=== PATIENT | male | born 1980 | race African-American/Black ===

== ENCOUNTER 2022-10-05 22:06 | Inpatient (IN) ==
[2022-10-05] MEDS ORDERED: NITROGLYCERIN 2% OINT 1 INCH/GM PACK TOP STA (22:45)
[2022-10-05] MEDS ORDERED: ASPIRIN 325 MG TABLET PO STA (22:45)
[2022-10-05] MEDS ORDERED: ONDANSETRON 4 MG/2 ML VIAL IV STA (22:45)
[2022-10-05] MEDS ORDERED: MORPHINE 2 MG/1 ML SYRINGE IV STA (22:45)
[2022-10-05] MEDS ORDERED: FUROSEMIDE 100 MG/10 ML VIAL IV STA (22:45)
[2022-10-05 22:51] LABS: Basophils % 0.3 % (0.0-0.8); Eosinophils # 0.1 10*3/uL (0.0-0.87); Eosinophils % 0.4 % (0.00-10.9); Hematocrit 43.7 VOL% (42.0-52.0); Hemoglobin 13.1 GM/DL (14.0-18.0); Immature Granulocytes % 0.3 %; Immature Granulocytes Absolute 0.04 #; Lymphocytes # 2.4 10*3/uL (1.4-4.0); Mean Platelet Volume 11.7 FL (9.6-12.0); Monocytes # 0.9 10*3/uL (0.11-0.8); Monocytes % 7.4 % (1.7-12.7); Neutrophils % 72.6 % (38.7-73.9); Platelet Count 230 T/CUMM (130-400); Red Blood Count 5.33 MC/CUMM (3.8-5.5); Red Cell Distribution Width 15.9 % (9.3-17.3); White Blood Count 12.6 T/CUMM (4-12)
[2022-10-05] MEDS ORDERED: hydrALAZINE 20 MG/1 ML VIAL ONE (22:52)
[2022-10-05 22:54] LABS: Bilirubin,Urine Negative (Negative); Blood, Urine Negative (Negative); Glucose,Urine (UA) Negative (Negative); Ketones,Urine Negative (Negative); Nitrite,Urine Negative (Negative); Protein,Urine 100 mg/dL (Negative); Urine Appearance Clear (Clear); Urine Color Yellow (Yellow); Urine Specific Gravity 1.025 (1.001-1.035); Urine Urobilinogen 0.2 eU/dL (<2.0)
[2022-10-05 22:56] LABS: Amorphous Crystals,Urine Occasional /HPF (Few); Hyaline Casts,Urine 9 /LPF (0-3); Mucus,Urine Occasional /LPF (Occasional); RBC,Urine 13 /HPF (0-4); Squamous Epithelial Cell,Urine Occasional /HPF (0-10)
[2022-10-05] MEDS ORDERED: hydrALAZINE 20 MG/1 ML VIAL IV STA (23:01)
[2022-10-05 23:04] LABS: Arterial Base Excess iSTAT 4 MMOL/L (-2.5-2.5); Arterial Bicarbonate iSTAT 29.7 MMOL/L (20-26); Arterial O2 Saturation iSTAT 96 % (95-100); Arterial PCO2 iSTAT 48 MM HG (35-48); Arterial PO2 iSTAT 82 MM HG (80-95); Arterial Total CO2 iSTAT 31 MMO/L (23-27); Arterial pH iSTAT 7.397 (7.35-7.45)
[2022-10-05 23:06] LABS: INR 1.1; Partial Thromboplastin Time 24.2 SECS (23.7-32.9)
[2022-10-05 23:20] LABS: Albumin 3.5 G/DL (3.4-5.0); Bilirubin,Total 0.6 MG/DL (0.20-1.00); Calcium 9.3 MG/DL (8.5-10.1); Osmolality,Calculated 294.7 MOS/KG (273-304); Potassium 3.5 MMOL/L (3.5-5.1); Total Protein 6.1 G/DL (6.4-8.2)
[2022-10-05] MEDS ORDERED: MAGNESIUM SULF RIDER 2 GM/50 ML PREMIX IV STA (23:40)
[2022-10-05] MEDS ORDERED: hydrALAZINE 20 MG/1 ML VIAL IV PRN (23:58)
[2022-10-05] MEDS ORDERED: ZALEPLON 5 MG CAPSULE PO PRN (23:58)
[2022-10-05] MEDS ORDERED: diphenhydrAMINE CAP 25 MG CAPSULE PO PRN (23:58)
[2022-10-05] MEDS ORDERED: MORPHINE 2 MG/1 ML SYRINGE IV PRN (23:58)
[2022-10-05] MEDS ORDERED: ONDANSETRON 4 MG/2 ML VIAL IV PRN (23:58)
[2022-10-05] MEDS ORDERED: guaiFENesin/DM ER 600-30 MG TABLET PO PRN (23:58)
[2022-10-05] MEDS ORDERED: NICOTINE 21 MG/24 HR PATCH TRANSDERM PRN (23:58)
[2022-10-05] MEDS ORDERED: ACETAMINOPHEN 325 MG TABLET PO PRN (23:58)
[2022-10-05] MEDS ORDERED: GLUCAGON 1 MG VIAL IM PRN (23:58)
[2022-10-06] MEDS ORDERED: carvediloL 3.125 MG TABLET PO STA (00:03)
[2022-10-06] MEDS ORDERED: DEXTROSE 10% 250 ML BAG IV PRN (00:26)
[2022-10-06] MEDS: ALBUTEROL/IPRATROPIUM 3 ML NEB RESP TX SCH ×4 (00:40→19:09)
[2022-10-06] MEDS ORDERED: ASPIRIN EC 325 MG TABLET PO STA (01:13)
[2022-10-06] MEDS ORDERED: ENOXAPARIN 100 MG/ML SYRINGE SUBCUT ONE (01:30)
[2022-10-06 05:31] LABS: Calcium 9.6 MG/DL (8.5-10.1); Osmolality,Calculated 292.8 MOS/KG (273-304)
[2022-10-06 05:48] LABS: Basophils % 0.2 % (0.0-0.8); Eosinophils # 0.1 10*3/uL (0.0-0.87); Eosinophils % 0.9 % (0.00-10.9); Hematocrit 40.6 VOL% (42.0-52.0); Hemoglobin 12.3 GM/DL (14.0-18.0); Immature Granulocytes % 0.3 %; Immature Granulocytes Absolute 0.04 #; Lymphocytes # 2.5 10*3/uL (1.4-4.0); Lymphocytes % 21.9 % (21.2-54.2); Mean Corpuscular HGB Conc 30.3 GM/DL (32-36); Mean Corpuscular Volume 80.7 FL (87-102); Mean Platelet Volume 12.5 FL (9.6-12.0); Monocytes # 0.8 10*3/uL (0.11-0.8); Monocytes % 6.7 % (1.7-12.7); Platelet Count 222 T/CUMM (130-400); Red Blood Count 5.03 MC/CUMM (3.8-5.5); Red Cell Distribution Width 15.9 % (9.3-17.3); White Blood Count 11.6 T/CUMM (4-12)
[2022-10-06] MEDS: POTASSIUM CHLORIDE 20 MEQ TABLET PO PRN ×3 (06:13→14:35)
[2022-10-06] MEDS ORDERED: POTASSIUM CHLORIDE 20 MEQ TABLET PO ONE (06:53)
[2022-10-06 08:00] LABS: Arterial Base Excess iSTAT 7 MMOL/L (-2.5-2.5); Arterial Bicarbonate iSTAT 33.4 MMOL/L (20-26); Arterial O2 Saturation iSTAT 97 % (95-100); Arterial PCO2 iSTAT 55 MM HG (35-48); Arterial PO2 iSTAT 94 MM HG (80-95); Arterial Total CO2 iSTAT 35 MMO/L (23-27); Arterial pH iSTAT 7.393 (7.35-7.45)
[2022-10-06] MEDS: FUROSEMIDE 40 MG/4 ML VIAL IV SCH ×2 (08:39→16:21)
[2022-10-06] MEDS: PANTOPRAZOLE 40 MG TABLET PO SCH (08:39)
[2022-10-06] MEDS: carvediloL 6.25 MG TABLET PO SCH ×2 (08:49→20:59)
[2022-10-06] MEDS: INSULIN LISPRO 100 UNIT/ML SUBCUT SCH ×4 (09:54→21:00)
[2022-10-06] MEDS: hydrALAZINE 25 MG TABLET PO SCH ×2 (14:35→20:59)
[2022-10-06] MEDS: ENOXAPARIN 80 MG/0.8 ML SYRINGE SUBCUT SCH (20:59)
[2022-10-07] MEDS: ALBUTEROL/IPRATROPIUM 3 ML NEB RESP TX SCH ×4 (00:03→20:36)
[2022-10-07 05:23] LABS: Calcium 8.6 MG/DL (8.5-10.1); Osmolality,Calculated 289.5 MOS/KG (273-304); Potassium 3.4 MMOL/L (3.5-5.1)
[2022-10-07 05:40] LABS: Basophils % 0.3 % (0.0-0.8); Eosinophils # 0.2 10*3/uL (0.0-0.87); Eosinophils % 1.4 % (0.00-10.9); Hemoglobin 12.4 GM/DL (14.0-18.0); Immature Granulocytes % 0.3 %; Immature Granulocytes Absolute 0.03 #; Lymphocytes # 2.6 10*3/uL (1.4-4.0); Lymphocytes % 23.7 % (21.2-54.2); Mean Corpuscular Volume 82.8 FL (87-102); Mean Platelet Volume 12.5 FL (9.6-12.0); Monocytes # 0.7 10*3/uL (0.11-0.8); Monocytes % 6.5 % (1.7-12.7); Neutrophils % 67.8 % (38.7-73.9); Platelet Count 217 T/CUMM (130-400); Red Blood Count 4.99 MC/CUMM (3.8-5.5); Red Cell Distribution Width 15.9 % (9.3-17.3); White Blood Count 10.8 T/CUMM (4-12)
[2022-10-07 05:44] LABS: Hematocrit 41.3 VOL% (42.0-52.0)
[2022-10-07] MEDS: INSULIN LISPRO 100 UNIT/ML SUBCUT SCH ×4 (07:50→21:33)
[2022-10-07] MEDS: hydrALAZINE 25 MG TABLET PO SCH ×3 (08:29→21:33)
[2022-10-07] MEDS: carvediloL 6.25 MG TABLET PO SCH ×2 (08:30→21:32)
[2022-10-07] MEDS: PANTOPRAZOLE 40 MG TABLET PO SCH (08:30)
[2022-10-07] MEDS: ISOSORBIDE MONONITRATE 30 MG TABLET PO SCH (08:30)
[2022-10-07] MEDS: POTASSIUM CHLORIDE 20 MEQ TABLET PO PRN ×2 (08:33→09:40)
[2022-10-07] MEDS ORDERED: metOLazone 2.5 MG TABLET PO SCH (09:00)
[2022-10-07] MEDS: FUROSEMIDE 40 MG/4 ML VIAL IV SCH ×2 (09:39→16:38)
[2022-10-07] MEDS: ENOXAPARIN 80 MG/0.8 ML SYRINGE SUBCUT SCH (21:33)
[2022-10-08] MEDS: ALBUTEROL/IPRATROPIUM 3 ML NEB RESP TX SCH ×4 (01:25→19:40)
[2022-10-08 05:17] LABS: Calcium 9.1 MG/DL (8.5-10.1); Osmolality,Calculated 287.5 MOS/KG (273-304); Potassium 3.1 MMOL/L (3.5-5.1)
[2022-10-08 05:19] LABS: Basophils % 0.3 % (0.0-0.8); Eosinophils # 0.2 10*3/uL (0.0-0.87); Eosinophils % 1.5 % (0.00-10.9); Hematocrit 39.8 VOL% (42.0-52.0); Hemoglobin 12.2 GM/DL (14.0-18.0); Immature Granulocytes % 0.4 %; Immature Granulocytes Absolute 0.04 #; Lymphocytes # 2.4 10*3/uL (1.4-4.0); Lymphocytes % 21.7 % (21.2-54.2); Mean Corpuscular HGB Conc 30.7 GM/DL (32-36); Mean Corpuscular Volume 80.2 FL (87-102); Mean Platelet Volume 12.4 FL (9.6-12.0); Monocytes # 0.7 10*3/uL (0.11-0.8); Monocytes % 6.3 % (1.7-12.7); Neutrophils % 69.8 % (38.7-73.9); Platelet Count 215 T/CUMM (130-400); Red Blood Count 4.96 MC/CUMM (3.8-5.5); Red Cell Distribution Width 15.9 % (9.3-17.3)
[2022-10-08] MEDS: POTASSIUM CHLORIDE 20 MEQ TABLET PO PRN (06:02)
[2022-10-08] MEDS: INSULIN LISPRO 100 UNIT/ML SUBCUT SCH ×4 (10:23→20:45)
[2022-10-08] MEDS: FUROSEMIDE 40 MG/4 ML VIAL IV SCH ×2 (10:34→16:18)
[2022-10-08] MEDS: metOLazone 5 MG TABLET PO SCH (10:40)
[2022-10-08] MEDS: hydrALAZINE 25 MG TABLET PO SCH ×3 (10:40→20:31)
[2022-10-08] MEDS: carvediloL 6.25 MG TABLET PO SCH (10:41)
[2022-10-08] MEDS: PANTOPRAZOLE 40 MG TABLET PO SCH (10:41)
[2022-10-08] MEDS: ISOSORBIDE MONONITRATE 30 MG TABLET PO SCH (10:41)
[2022-10-08] MEDS: POTASSIUM CHLORIDE 20 MEQ TABLET PO SCH ×2 (10:43→20:40)
[2022-10-08] MEDS: ENOXAPARIN 80 MG/0.8 ML SYRINGE SUBCUT SCH (20:31)
[2022-10-08] MEDS: carvediloL 12.5 MG TABLET PO SCH (20:31)
[2022-10-09] MEDS: ALBUTEROL/IPRATROPIUM 3 ML NEB RESP TX SCH ×4 (00:48→19:47)
[2022-10-09 06:27] LABS: Calcium 9.3 MG/DL (8.5-10.1); Osmolality,Calculated 286.5 MOS/KG (273-304); Potassium 3.4 MMOL/L (3.5-5.1)
[2022-10-09 06:37] LABS: Basophils % 0.3 % (0.0-0.8); Eosinophils # 0.1 10*3/uL (0.0-0.87); Eosinophils % 1.4 % (0.00-10.9); Hematocrit 42.9 VOL% (42.0-52.0); Immature Granulocytes % 0.4 %; Immature Granulocytes Absolute 0.04 #; Mean Corpuscular HGB Conc 30.3 GM/DL (32-36); Mean Corpuscular Volume 79.9 FL (87-102); Monocytes # 0.7 10*3/uL (0.11-0.8); Monocytes % 7.8 % (1.7-12.7); Neutrophils % 69.1 % (38.7-73.9); Platelet Count 209 T/CUMM (130-400); Red Blood Count 5.37 MC/CUMM (3.8-5.5); Red Cell Distribution Width 15.9 % (9.3-17.3); White Blood Count 9.3 T/CUMM (4-12)
[2022-10-09] MEDS ORDERED: MAGNESIUM SULF RIDER 2 GM/50 ML PREMIX IV PRN (08:27)
[2022-10-09] MEDS ORDERED: MAGNESIUM SULF RIDER 4 GM/100 ML PREMIX IV PRN (08:27)
[2022-10-09] MEDS: ISOSORBIDE MONONITRATE 30 MG TABLET PO SCH (09:58)
[2022-10-09] MEDS: POTASSIUM CHLORIDE 20 MEQ TABLET PO SCH ×2 (09:58→22:07)
[2022-10-09] MEDS: PANTOPRAZOLE 40 MG TABLET PO SCH (09:58)
[2022-10-09] MEDS: hydrALAZINE 25 MG TABLET PO SCH ×3 (09:59→22:08)
[2022-10-09] MEDS: metOLazone 5 MG TABLET PO SCH (09:59)
[2022-10-09] MEDS: carvediloL 12.5 MG TABLET PO SCH ×2 (09:59→22:08)
[2022-10-09] MEDS: FUROSEMIDE 40 MG/4 ML VIAL IV SCH ×2 (10:00→17:23)
[2022-10-09] MEDS: INSULIN LISPRO 100 UNIT/ML SUBCUT SCH ×4 (10:00→22:09)
[2022-10-09] MEDS: ENOXAPARIN 80 MG/0.8 ML SYRINGE SUBCUT SCH (22:08)
[2022-10-10] MEDS: ALBUTEROL/IPRATROPIUM 3 ML NEB RESP TX SCH ×3 (00:45→14:23)
[2022-10-10 05:50] LABS: Basophils % 0.2 % (0.0-0.8); Eosinophils # 0.2 10*3/uL (0.0-0.87); Eosinophils % 1.4 % (0.00-10.9); Hematocrit 39.9 VOL% (42.0-52.0); Immature Granulocytes % 0.5 %; Immature Granulocytes Absolute 0.05 #; Lymphocytes # 1.9 10*3/uL (1.4-4.0); Lymphocytes % 18.3 % (21.2-54.2); Mean Corpuscular HGB Conc 30.1 GM/DL (32-36); Mean Corpuscular Volume 81.3 FL (87-102); Mean Platelet Volume 12.5 FL (9.6-12.0); Monocytes # 0.9 10*3/uL (0.11-0.8); Monocytes % 8.2 % (1.7-12.7); Neutrophils % 71.4 % (38.7-73.9); Platelet Count 196 T/CUMM (130-400); Red Blood Count 4.91 MC/CUMM (3.8-5.5); Red Cell Distribution Width 15.6 % (9.3-17.3); White Blood Count 10.4 T/CUMM (4-12)
[2022-10-10 06:11] LABS: Calcium 9.4 MG/DL (8.5-10.1); Osmolality,Calculated 288.5 MOS/KG (273-304); Potassium 3.1 MMOL/L (3.5-5.1)
[2022-10-10] MEDS: INSULIN LISPRO 100 UNIT/ML SUBCUT SCH ×3 (09:09→15:39)
[2022-10-10] MEDS: PANTOPRAZOLE 40 MG TABLET PO SCH (09:09)
[2022-10-10] MEDS: hydrALAZINE 25 MG TABLET PO SCH ×2 (09:09→15:18)
[2022-10-10] MEDS: POTASSIUM CHLORIDE 20 MEQ TABLET PO SCH (09:09)
[2022-10-10] MEDS: carvediloL 12.5 MG TABLET PO SCH (09:09)
[2022-10-10] MEDS: ISOSORBIDE MONONITRATE 30 MG TABLET PO SCH (09:09)
[2022-10-10] MEDS: metOLazone 5 MG TABLET PO SCH (09:10)
[2022-10-10] MEDS: FUROSEMIDE 40 MG/4 ML VIAL IV SCH ×2 (09:16→15:20)
[2022-10-10 16:27] VITALS: BP 121/83
== END 2022-10-10 17:23 | disposition hospice, home (50) | DRG 291 ==
LOC: N.ED 22:06 → N.EDINP 23:58 → N.TELEN 10-06 02:07
PROVIDERS: ADMIT Hospitalist; ATTEND Hospitalist

== ENCOUNTER 2022-12-16 12:05 | Observation (INO) ==
[2022-12-16] MEDS ORDERED: SODIUM CHLORIDE 0.9% 1,000 ML IV STA (14:06)
[2022-12-16 14:22] LABS: Basophils % 0.1 % (0.0-0.8); Hematocrit 49.4 VOL% (42.0-52.0); Hemoglobin 16.1 GM/DL (14.0-18.0); Immature Granulocytes % 0.7 %; Lymphocytes % 13.2 % (21.2-54.2); Mean Corpuscular HGB Conc 32.6 GM/DL (32-36); Mean Corpuscular Volume 74.4 FL (87-102); Monocytes # 0.9 10*3/uL (0.11-0.8); Monocytes % 6.3 % (1.7-12.7); Neutrophils % 79.7 % (38.7-73.9); Platelet Count 197 T/CUMM (130-400); Red Blood Count 6.64 MC/CUMM (3.8-5.5); Red Cell Distribution Width 17.3 % (9.3-17.3)
[2022-12-16 14:24] LABS: Calcium 10.1 MG/DL (8.5-10.1); Osmolality,Calculated 298.6 MOS/KG (273-304)
[2022-12-16] MEDS ORDERED: INSULIN REGULAR 100 UNIT/ML SUBCUT STA (15:41)
[2022-12-16] MEDS ORDERED: INSULIN REGULAR 100 UNIT/ML ONE (15:44)
[2022-12-16] MEDS ORDERED: hydrALAZINE 20 MG/1 ML VIAL IV STA (15:47)
[2022-12-16] MEDS ORDERED: ACETAMINOPHEN 325 MG TABLET PO PRN (16:22)
[2022-12-16] MEDS ORDERED: ONDANSETRON 4 MG/2 ML VIAL IV PRN (16:22)
[2022-12-16] MEDS ORDERED: GLUCAGON 1 MG VIAL IM PRN (16:22)
[2022-12-16] MEDS ORDERED: DEXTROSE 10% 250 ML BAG IV PRN (16:22)
[2022-12-16] MEDS: INSULIN REGULAR 100 UNIT/ML SUBCUT SCH ×2 (17:30→22:53)
[2022-12-16] MEDS: SODIUM CHLORIDE 0.9% 1,000 ML IV SCH (17:56)
[2022-12-16] MEDS ORDERED: INSULIN REGULAR 100 UNIT/ML IV STA (19:13)
[2022-12-16] MEDS ORDERED: SODIUM CHLORIDE 0.9% 500 ML IV STA (19:14)
[2022-12-16] MEDS ORDERED: INSULIN GLARGINE 100 UNIT/ML SUBCUT STA (22:34)
[2022-12-16] MEDS: carvediloL 12.5 MG TABLET PO SCH (22:59)
[2022-12-16] MEDS: hydrALAZINE 25 MG TABLET PO SCH (22:59)
[2022-12-17 04:38] LABS: Basophils % 0.1 % (0.0-0.8); Eosinophils % 0.1 % (0.00-10.9); Hematocrit 49.7 VOL% (42.0-52.0); Immature Granulocytes % 0.6 %; Immature Granulocytes Absolute 0.08 #; Lymphocytes # 2.9 10*3/uL (1.4-4.0); Mean Corpuscular HGB Conc 32.2 GM/DL (32-36); Mean Corpuscular Volume 76.2 FL (87-102); Monocytes % 7.3 % (1.7-12.7); Neutrophils % 71.9 % (38.7-73.9); Platelet Count 178 T/CUMM (130-400); Red Blood Count 6.52 MC/CUMM (3.8-5.5); Red Cell Distribution Width 17.7 % (9.3-17.3); White Blood Count 14.2 T/CUMM (4-12)
[2022-12-17 04:53] LABS: Alanine Aminotransferase 57 U/L (16-61); Albumin 3.8 G/DL (3.4-5.0); Alkaline Phosphatase 94 U/L (45-117); Aspartate Amino Transferase 23 U/L (0-37); Bilirubin,Total < 0.39 MG/DL (0.20-1.00); Blood Urea Nitrogen 63 MG/DL (7-18); Calcium 9.5 MG/DL (8.5-10.1); Carbon Dioxide 29 MMOL/L (21-32); Chloride 96 MMOL/L (98-107); Glucose 441 MG/DL (74-106); Osmolality,Calculated 298.7 MOS/KG (273-304); Potassium 4.7 MMOL/L (3.5-5.1); Sodium 131 MMOL/L (136-145); Total Protein 8.2 G/DL (6.4-8.2)
[2022-12-17] MEDS: SODIUM CHLORIDE 0.9% 1,000 ML IV SCH (08:18)
[2022-12-17] MEDS ORDERED: INSULIN REGULAR 100 UNIT/ML IV STA (09:01)
[2022-12-17] MEDS: carvediloL 12.5 MG TABLET PO SCH ×2 (10:08→22:24)
[2022-12-17] MEDS: ISOSORBIDE MONONITRATE 30 MG TABLET PO SCH (10:08)
[2022-12-17] MEDS: hydrALAZINE 25 MG TABLET PO SCH ×3 (10:09→22:24)
[2022-12-17] MEDS: INSULIN LISPRO 100 UNIT/ML SUBCUT SCH ×3 (15:11→22:24)
[2022-12-17] MEDS ORDERED: INSULIN GLARGINE 100 UNIT/ML SUBCUT STA (16:12)
[2022-12-17] MEDS ORDERED: INSULIN REGULAR 100 UNIT/ML IV ONE (17:57)
[2022-12-17] MEDS: INSULIN REGULAR 100 UNIT/ML SUBCUT SCH (18:05)
[2022-12-17] MEDS ORDERED: INSULIN GLARGINE 100 UNIT/ML SUBCUT SCH (21:00)
[2022-12-18] MEDS: INSULIN LISPRO 100 UNIT/ML SUBCUT SCH ×3 (02:13→11:10)
[2022-12-18 08:34] LABS: Basophils % 0.1 % (0.0-0.8); Eosinophils # 0.2 10*3/uL (0.0-0.87); Eosinophils % 1.2 % (0.00-10.9); Hematocrit 49.9 VOL% (42.0-52.0); Hemoglobin 15.7 GM/DL (14.0-18.0); Immature Granulocytes % 0.5 %; Immature Granulocytes Absolute 0.08 #; Lymphocytes # 3.5 10*3/uL (1.4-4.0); Lymphocytes % 22.3 % (21.2-54.2); Mean Corpuscular HGB Conc 31.5 GM/DL (32-36); Mean Corpuscular Volume 76.5 FL (87-102); Monocytes # 1.1 10*3/uL (0.11-0.8); Monocytes % 7.2 % (1.7-12.7); Neutrophils % 68.7 % (38.7-73.9); Platelet Count 186 T/CUMM (130-400); Red Blood Count 6.52 MC/CUMM (3.8-5.5); Red Cell Distribution Width 17.6 % (9.3-17.3); White Blood Count 15.5 T/CUMM (4-12)
[2022-12-18 08:47] LABS: Calcium 9.3 MG/DL (8.5-10.1); Potassium 4.1 MMOL/L (3.5-5.1)
[2022-12-18 08:51] LABS: Anisocytosis Slight; Platelet Estimate Normal
[2022-12-18] MEDS ORDERED: INSULIN GLARGINE 100 UNIT/ML SUBCUT SCH ×2 (09:00)
[2022-12-18] MEDS ORDERED: PHENOL 1.4% THROAT SPRAY 177 ML BOTTLE PO PRN (10:22)
[2022-12-18] MEDS: hydrALAZINE 25 MG TABLET PO SCH (11:07)
[2022-12-18] MEDS: carvediloL 12.5 MG TABLET PO SCH (11:07)
[2022-12-18] MEDS: ISOSORBIDE MONONITRATE 30 MG TABLET PO SCH (11:07)
[2022-12-18 12:35] VITALS: BP 116/79
[2022-12-18] MEDS ORDERED: AMOXICILLIN/CLAV 500 MG TABLET PO SCH (13:00)
== END 2022-12-18 14:20 | disposition home health service (06) ==
LOC: N.EDINP 12:05 → N.ED 12:05 → SUATTDRO 16:22 → N.TELEN 12-17 09:07
PROVIDERS: ADMIT Internal Medicine; ATTEND Family Medicine